=== PATIENT | female | born 1980 | race Caucasian/White ===

== ENCOUNTER 2018-12-17 14:26 | Emergency (ER) | payer OTHER ==
[~2018-12-17] VITALS: Ht 160 cm; Wt 123.8 kg
[2018-12-17 14:38] VITALS: BP 124/71
--- NOTE | 2018-12-17 14:42 | NUR ---
Patient ambulated to bed 4. RN evaluating patient at bedside.
--- NOTE | 2018-12-17 14:42 | NUR ---
BIB SELF. AAO X4 C/O R EYE REDNESS X 1 DAY. PT STATES WHEN SHE WOKE UP THIS MORNING, HER RIGHT LATERAL EYE SCLERA WAS BRIGHT RED, PT DENIES PAIN BUT STATES THE EYE FEELS IRRITATED AND LIKE "THERE IS A FILM OVER IT AND SOMETHING IS TUGGING ON IT". PT STATES PAIN BEHIND THE EYE OF 3/10. SHE STATES SHE DOESN'T HAVE BLURRY VISION IT "JUST FEELS WEIRD." PT DENIES TRAUMA/INJURY, PT STATES THIS HAPPENED A FEW WEEKS AGO WELL. ER TO EVALUATE PT.
--- NOTE | 2018-12-17 14:50 | NUR ---
Dr. Nava evaluating patient at bedside.
--- NOTE | 2018-12-17 14:59 | NUR ---
EYE ACUITY DONE, RIGHT EYE 20/20, LEFT EYE 20/20, BOTH EYES 20/20
[2018-12-17 15:12] VITALS: BP 124/71
--- NOTE | 2018-12-17 15:12 | NUR ---
Patient discharged with v/s stable. Written and verbal after care instructions given and explained. Patient verbalized understanding. Ambulatory with steady gait. All questions addressed prior to discharge. Advised to follow up with PMD.
== END 2018-12-17 15:12 | disposition home or self-care (01) ==
LOC: MED 14:26
DX: H11.31 Conjunctival hemorrhage, right eye (principal)
CPT/HCPCS: 99281; 99282